=== PATIENT | female | born 1955 | race Two or more races ===

== ENCOUNTER 2024-04-30 14:48 | Inpatient (IN) | payer OTHER, BC ==
[~2024-04-30] VITALS: Ht 162.6 cm; Wt 100.2 kg
[~2024-04-30 14:48] MED LIST: BENICAR20 MG; METRONIDAZOLE
[2024-04-30] MEDS ORDERED: AMLODIPINE BESYL5 MG PO (16:11)
[2024-04-30] MEDS ORDERED: LOSARTAN-HCTZ1 EAC1 PO (16:11)
[2024-04-30] MEDS ORDERED: ROSUVASTATIN CA10 MG PO (16:11)
[2024-04-30] MEDS ORDERED: TERBINAFINE HC250 MG (16:12)
[2024-04-30] MEDS ORDERED: FAMOTIDINE/PF 20 MG in 0.9 % SODIUM CHLORIDE 8 ML IV PUSH STA (16:43)
[2024-04-30] MEDS ORDERED: KETOROLAC TROMETHAMINE 30 MG VIAL IV ONE (16:45)
[2024-04-30] MEDS ORDERED: 0.9 % SODIUM CHLORIDE 1,000 ML IV SCH ×2 (16:45→21:15)
[2024-04-30 17:16] LABS: HEMATOCRIT 45.4 % (36.0-45.00); HEMOGLOBIN 15.7 g/dL (12.0-15.00); MEAN CELL VOLUME 94.7 fL (80.00-100.00); MEAN CORPUSCULAR HEMOGLOBIN 32.7 pg (27.00-32.0); MEAN CORPUSCULAR HGB CONC 34.5 g/dl (32.0-36.0); PLATELET COUNT 175 K/uL (150-450); RED CELL DISTRIBUTION WIDTH 13.7 % (11.5-14.5)
[2024-04-30 17:34] LABS: ALBUMIN 4.2 gm/dL (3.4-5.0); BILIRUBIN TOTAL 1.59 mg/dL (0.3-1.2); BILIRUBIN,CONJUGATED 0.34 mg/dL (0.0-0.2); BILIRUBIN,UNCONJUGATED 1.25 mg/dL (0.0-0.6); CALCIUM 9.9 mg/dL (8.5-10.1); CREATININE SERUM 1.26 mg/dL (0.55-1.02); GFR 42.1; GLOBULINA 3.8 G/DL (2.4-3.5); POTASSIUM 3.59 mEq/L (3.5-5.1)
[2024-04-30] MEDS ORDERED: PIPERACILLIN/TAZOBACTAM SODIUM 3.375 GM VIAL IV ONE (20:30)
[2024-04-30] MEDS ORDERED: ONDANSETRON HCL 4 MG in 0.9 % SODIUM CHLORIDE 50 ML IV PRN (21:15)
[2024-04-30] MEDS ORDERED: MORPHINE SULFATE 4 MG/ML CARTRIDGE IV ONE (21:15)
[2024-04-30] MEDS ORDERED: MORPHINE SULFATE 4 MG/ML CARTRIDGE IV PRN (21:15)
[2024-04-30] MEDS ORDERED: ACETAMINOPHEN 500 MG GEL..CAP PO PRN (21:15)
[2024-04-30 21:55] LABS: ABG PH 7.455 (7.35-7.45); ABG pCO2 43.9 mmHg (35-45); BASE EXCESS 5.5 mmol/l; BICARBONATE 30.1 mmol/l (23-25); SaO2 96.5 %; Tco2 31.5 mmol/l
[2024-04-30 22:11] LABS: allen test SATISFACTORY; o2 21 %; puncture site RADIAL LEFT
[2024-05-01] MEDS ORDERED: PIPERACILLIN/TAZOBACTAM SODIUM 3.375 GM in DEXTROSE 5 % IN WATER 100 ML IV SCH
[2024-05-01 02:16] LABS: INR 1.14; PARTIAL THROMBOPLASTIN TIME 28.3 SECONDS (22.0-34.0); PROTHROMBIN TIME 12.3 SECONDS (9.0-11.5)
[2024-05-01 02:26] VITALS: BP 141/71; O2SAT 96
[2024-05-01 05:16] LABS: PH,URINE 5.5 (5.0-8.0); URINE APPEARANCE Clear; URINE BILIRRUBIN Negative (NEGATIVE); URINE BLOOD Negative; URINE COLOR Yellow; URINE GLUCOSE Negative (NEGATIVE); URINE KETONE Trace (NEGATIVE); URINE LEUKOCYTE Small; URINE NITRATE Negative; URINE PROTEIN Trace (NEGATIVE); URINE UROBILINOGEN 0.2 E.U./dl
[2024-05-01 05:20] LABS: URINE EPITHELIAL CELLS 22.5 uL (0.0-38.8); URINE RBC 10.5 uL (0.0-20.8); URINE WBC 28.4 uL (0.0-23.2)
[2024-05-01 05:24] LABS: URINE CAST 0.91 uL (0.0-1.40)
[2024-05-01 05:52] VITALS: BP 124/73; O2SAT 99
[2024-05-01 08:04] VITALS: BP 120/69
[2024-05-01] MEDS ORDERED: KETOROLAC TROMETHAMINE 30 MG VIAL IM NR (09:00)
[2024-05-01] MEDS ORDERED: ENOXAPARIN SODIUM 40 MG/0.4 ML SYRINGE SUBCUTANEO SCH (09:00)
[2024-05-01] MEDS ORDERED: LOSARTAN/HYDROCHLOROTHIAZIDE 1 UDTAB TABLET PO SCH (09:00)
[2024-05-01] MEDS ORDERED: AMLODIPINE BESYLATE 5 MG TABLET PO SCH (17:00)
[2024-05-01 18:29] VITALS: BP 119/70; O2SAT 100
[2024-05-02 01:14] VITALS: BP 107/67; O2SAT 97
[2024-05-02 09:20] VITALS: BP 136/80; O2SAT 98
[2024-05-02 09:56] LABS: HEMATOCRIT 38.4 % (36.0-45.00); HEMOGLOBIN 13.4 g/dL (12.0-15.00); MEAN CELL VOLUME 95.8 fL (80.00-100.00); MEAN CORPUSCULAR HEMOGLOBIN 33.3 pg (27.00-32.0); MEAN CORPUSCULAR HGB CONC 34.8 g/dl (32.0-36.0); RED BLOOD COUNT 4.01 M/uL (4.00-6.00); RED CELL DISTRIBUTION WIDTH 13.9 % (11.5-14.5)
[2024-05-02 09:57] LABS: PLATELET COUNT 122 K/uL (150-450)
[2024-05-02 11:00] LABS: MAGNESIUM 2.5 mg/dL (1.8-2.4); PHOSPHOROUS 2.6 mg/dL (2.5-4.9)
[2024-05-02 11:01] LABS: C-REACTIVE PROTEIN 15.9 MG/DL (0.00-0.29)
[2024-05-02 11:15] LABS: ALBUMIN 3.6 gm/dL (3.4-5.0); BILIRUBIN TOTAL 1.08 mg/dL (0.3-1.2); CALCIUM 8.9 mg/dL (8.5-10.1); CREATININE SERUM 0.95 mg/dL (0.55-1.02); GFR 58.33; GLOBULINA 3.1 G/DL (2.4-3.5); POTASSIUM 3.6 mEq/L (3.5-5.1); TOTAL PROTEIN 6.7 gm/dL (6.4-8.2)
[2024-05-02 18:49] VITALS: BP 156/56
[2024-05-03 01:02] VITALS: BP 144/56
[2024-05-03 09:18] VITALS: BP 139/78
== END 2024-05-03 14:23 | disposition home or self-care (01) | DRG 392 ==
LOC: ER 14:50 → MEDJ 22:07
PROVIDERS: General Practice; Internal Medicine Infectious Disease; ADMIT Internal Medicine; ATTEND Internal Medicine
PROC: BW21ZZZ Computerized Tomography (CT Scan) of Abdomen and Pelvis (ICD-10-PCS; principal; 2024-04-30)
DX: K52.89 Other specified noninfective gastroenteritis and colitis (principal); R65.10 Systemic inflammatory response syndrome (SIRS) of non-infectious origin without acute organ dysfunction